=== PATIENT | male | born 1980 | race Caucasian/White ===

== ENCOUNTER → 2021-07-24 10:45 | Outpatient (BNVA) | payer OTHER, SELFPAY | PROVIDERS: Visit Provider Physician Assistant Medical | DX: S05.12XA Contusion of eyeball and orbital tissues, left eye, initial encounter (principal); W31.2XXA Contact with powered woodworking and forming machines, initial encounter; H53.9 Unspecified visual disturbance | CPT/HCPCS: 92004; 99203 ==

== ENCOUNTER → 2021-07-25 11:21 | Outpatient (BNVA) | payer OTHER, SELFPAY | PROVIDERS: Visit Provider Physician Assistant Medical | DX: S05.12XA Contusion of eyeball and orbital tissues, left eye, initial encounter (principal); W22.8XXA Striking against or struck by other objects, initial encounter | CPT/HCPCS: 99213 ==